=== PATIENT | female | born 1965 | race Caucasian/White ===

== ENCOUNTER 2016-06-21 16:26 | Emergency (ER) | payer MEDICAID ==
[~2016-06-21] VITALS: Ht 157.5 cm; Wt 84.1 kg
[~2016-06-21 16:26] MED LIST: BACITRACIN TOPIC1 TU TOP; CRESTOR 10MG10 MG PO; CRESTOR5 MG; FIORICET 325 MG1 TA1 PO; LIPITOR 10MG10 MG; METHADONE H10 MG/TAB PO; MS CONTIN 330 MG/TAB PO; NEURONTIN800 MG/TAB PO; NORCO 325 MG-51 TAB PO; OXYCONTIN60 MG PO; PERCOCET 325 MG1 TA2 PO; PROZAC40 MG PO; ROXICODONE30 MG PO; SYNTHROID 0.0.025 MG; SYNTHROID0.05 MG/TA PO; TENORMIN 2525 MG/TAB PO; TENORMIN100 MG PO; XANAX 1MG1 MG PO
[2016-06-21 16:34] VITALS: BP 127/104; PULSE 94; TEMP 98.5
== END 2016-06-21 18:45 | disposition left against medical advice (07) ==
LOC: COL.ER 16:26
DX: Z53.9 Procedure and treatment not carried out, unspecified reason (principal)